=== PATIENT | male | born 1950 | race Two or more races ===

== ENCOUNTER 2019-06-07 16:59 | Emergency (ER) | payer OTHER, MEDICAID ==
[~2019-06-07] VITALS: Ht 177.8 cm; Wt 74.8 kg
--- NOTE | 2019-06-07 17:12 | NUR ---
PT AAOX. BIBRA C/O R KNEE CHRONIC PAIN. PER RA, PT IS SUPPOSED TO HAVE SURGERY NEXT WEEK BUT IS C/O PAIN. PLACED ON MONITOR AND PULSE OX. NO ACUTE DISTRESS NOTED. R KNEE NOTED SWOLLEN. WILL CONTINUE TO MONITOR.
--- NOTE | 2019-06-07 17:39 | NUR ---
PER , PT SCHEDULED FOR SURGERY ON THE . TOOK TRAMADOL THAT WAS PRESCRIBED BUT DID NOT HELP. "IT MADE HIM SHAKE"
[2019-06-07] MEDS ORDERED: HYDROCODONE/APAP 5/325MG 1 EACH TABLET ONE (17:46)
[2019-06-07] MEDS ORDERED: KETOROLAC TROMETHAMINE INJ 30 MG/ML VIAL ONE (17:47)
[2019-06-07] MEDS ORDERED: oxyCODONE/APAP (5/325 MG) 1 UDTAB TABLET ONE (17:49)
[2019-06-07] MEDS ORDERED: KETOROLAC TROMETHAMINE INJ 60 MG/2 ML VIAL IM ONE (18:00)
[2019-06-07] MEDS ORDERED: oxyCODONE/APAP (5/325 MG) 1 UDTAB TABLET PO ONE (18:00)
--- NOTE | 2019-06-07 18:56 | NUR ---
EMT AT BEDSIDE FOR R KNEE IM.
--- NOTE | 2019-06-07 19:08 | NUR ---
Patient discharged to home in stable condition. Written and verbal after care instructions given. Patient verbalizes understanding of instruction and RX. PT wheeled out of ED. picked up patient and drove. VSS. Pt denies pain at the moment.
[2019-06-07 19:09] VITALS: BP 128/72
== END 2019-06-07 19:38 | disposition home or self-care (01) ==
LOC: ER 17:02
DX: M25.461 Effusion, right knee (principal); M25.561 Pain in right knee; G89.29 Other chronic pain
CPT/HCPCS: 29505; 82962; 96372; 99283; J1885